=== PATIENT | female | born 1970 | race Caucasian/White ===

== ENCOUNTER 2024-06-22 06:25 | Day surgery (SDC) | payer OTHER, BC ==
[2024-06-22] MEDS: Dextrose 5%-0.45% NaCl 1,000 ML IV SCH (06:46)
[2024-06-22] MEDS ORDERED: Midazolam 1 MG/ML 2 ML SDV ONE (06:47)
[2024-06-22] MEDS ORDERED: fentaNYL 100 MCG/2 ML SDV ONE (06:48)
[2024-06-22] MEDS: fentaNYL 100 MCG/2 ML SDV IV ONE ×4 (07:00→07:35)
[2024-06-22] MEDS: Midazolam 1 MG/ML 2 ML SDV IV ONE ×6 (07:01→07:07)
[2024-06-22] MEDS ORDERED: Sodium Chloride 0.9% 1,000 ML IV SCH (07:26)
[2024-06-22] MEDS: Sodium Chloride 0.9% 1,000 ML IV SCH (09:13)
== END 2024-06-22 09:29 | disposition home or self-care (01) ==
LOC: DL.ENDO 06:25
PROVIDERS: ATTEND Internal Medicine Gastroenterology
DX: Z12.11 Encounter for screening for malignant neoplasm of colon (principal)
CPT/HCPCS: J2250; J3010; J7030; J7799